=== PATIENT | male | born 1940 | race Caucasian/White ===

== ENCOUNTER 2022-08-07 21:27 | Emergency (ER) | payer MEDICARE, OTHER ==
--- NOTE | 2022-08-07 21:36 | ERPHSYRPT ---
- History of Present Illness Time Seen by Provider: 08/07/22 21:36 Source: patient Exam Limitations: no limitations Physician History: Patient presents w/ palpitations for the past hour. 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 Timing/Duration: today Activities at Onset: rest Chest Pain Radiation: no radiation Severity of Pain-Max: none Severity of Pain-Current: none Modifying Factors: Improves With: nothing Nitro Today/Relief: no nitro taken today Aspirin Treatment Today: no aspirin today Associated Symptoms: denies symptoms Prior Chest Pain/Cardiac Workup: no prior chest pain Allergies/Adverse Reactions: budesonide [From Symbicort] Allergy (Severe, Verified 08/07/22 21:46) Irregular Heart Beat ciprofloxacin [From Cipro] Allergy (Severe, Verified 08/07/22 21:46) Irregular Heart Beat ciprofloxacin HCl [From Cipro] Allergy (Severe, Verified 08/07/22 21:46) Irregular Heart Beat formoterol [From Symbicort] Allergy (Severe, Verified 08/07/22 21:46) Irregular Heart Beat sulfamethoxazole [From Bactrim] Allergy (Severe, Verified 08/07/22 21:46) Rapid Heart Beat trimethoprim [From Bactrim] Allergy (Severe, Verified 08/07/22 21:46) Rapid Heart Beat Home Medications: Amlodipine Besylate 5 mg [Norvasc 5 mg] 5 mg PO BID 03/31/13 [History] Aspirin 81 gm Chew [Baby Aspirin 81 mg Chew] 81 mg PO DAILY 03/31/13 [History] Carvedilol [Coreg 6.25 MG] 6.25 mg PO BID 03/31/13 [History] Lisinopril 20 mg [Zestril 20 MG] 20 mg PO BID 03/31/13 [History] Pravastatin Sodium 80 mg PO DAILY 03/31/13 [History] Apixaban [Eliquis] 5 mg PO BID 08/07/22 [History] Ergocalciferol (Vitamin D2) [Vitamin D2] 1 tab PO UD 08/07/22 [History] Ezetimibe 10 mg PO DAILY 08/07/22 [History] Finasteride 5 mg [Proscar 5 MG] 1 tab PO HS 08/07/22 [History] Hx Tetanus, Diphtheria Vaccination/Date Given: No Hx Influenza Vaccination/Date Given: No Hx Pneumococcal Vaccination/Date Given: No - Review of Systems Constitutional: No Symptoms Eyes: No Symptoms Ears, Nose, & Throat: No Symptoms Respiratory: No Symptoms Cardiac: Palpitations, No Chest Pain, No Edema, No Orthopnea Abdominal/Gastrointestinal: No Symptoms Genitourinary Symptoms: No Symptoms Musculoskeletal: No Symptoms Skin: No Symptoms Neurological: No Symptoms Psychological: No Symptoms Endocrine: No Symptoms Hematologic/Lymphatic: No Symptoms Immunological/Allergic: No Symptoms All Other Systems: Reviewed and Negative - Past Medical History Pertinent Past Medical History: Yes Neurological History: No Pertinent History ENT History: No Pertinent History Cardiac History: Arrhythmia, Coronary Artery Disease, High Cholesterol, Hypertension, Myocardial Infarction ([place]) Respiratory History: Pneumonia Endocrine Medical History: No Pertinent History Musculoskeletal History: No Pertinent History GI Medical History: Colitis, GERD, Hernia History: No Pertinent History Psycho-Social History: No Pertinent History Male Reproductive Disorders: No Pertinent History Other Medical History: ABDOMINAL ANEURYSM BEHIND THE STOMACHE. 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 DR ALVAREZ IS [employer] - Past Surgical History Past Surgical History: Yes Neuro Surgical History: No Pertinent History Cardiac: Cardiac Catheterization, Cardiac Stent Respiratory: No Pertinent History Gastrointestinal: Appendectomy, Hernia Repair Genitourinary: No Pertinent History Musculoskeletal: No Pertinent History Male Surgical History: No Pertinent History - Social History Smoking Status: Former smoker Exposure to second hand smoke: No Drug Use: none Patient Lives Alone: Yes - Nursing Vital Signs Nursing Vital Signs: Initial Vital Signs Temperature 98.9 F 08/07/22 21:28 Pulse Rate 60 08/07/22 21:28 Respiratory Rate 20 08/07/22 21:28 Blood Pressure 126/57 08/07/22 21:28 O2 Sat by Pulse Oximetry 98 08/07/22 21:28 Pain Scale Pain Intensity 0 - Physical Exam General Appearance: no apparent distress Eye Exam: eyes nml inspection Ears, Nose, Throat Exam: normal ENT inspection Neck Exam: normal inspection Respiratory Exam: normal breath sounds, lungs clear, airway intact, No respiratory distress Cardiovascular Exam: irregular, capillary refill <2 sec, No edema Gastrointestinal/Abdomen Exam: soft, No tenderness Extremity Exam: normal inspection, No pedal edema, No swelling, No tenderness Neurologic Exam: alert, oriented x 3, cooperative, No confusion Skin Exam: warm, dry, pale SpO2 Interpretation: normal SpO2: 98 O2 Delivery: Room Air - Course Nursing assessment & vital signs reviewed: Yes EKG Interpreted by Me: RATE (68, atrial paced, irregular), NORMAL AXIS, NORMAL INTERVALS, Other (No concerning ST changes) Ordered Tests: Active Orders 24 hr Category Date Time Status Cleaning Custodian STAT Care 08/07/22 22:20 Active EKG-ER Only STAT Care 08/07/22 22:19 Active IV Insertion STAT Care 08/07/22 22:19 Active Pulse Oximetry (ED) STAT Care 08/07/22 22:19 Active BMP Stat Lab 08/07/22 21:38 Completed CBC W DIFF Stat Lab 08/07/22 21:38 Completed MAGNESIUM Stat Lab 08/07/22 21:38 Completed NT PRO BNPII Stat Lab 08/07/22 21:38 Completed TROPONIN Q4H Lab 08/07/22 21:38 Completed TROPONIN Q4H Lab 08/08/22 02:30 Ordered TROPONIN Q4H Lab 08/08/22 06:30 Ordered Lab/Rad Data: Laboratory Result Diagrams 08/07/22 21:38 08/07/22 21:38 Laboratory Results 08/07/22 08/07/22 08/07/22 Range/Units 21:38 21:38 21:38 WBC (4.0-10.5) x10^3/uL RBC (4.1-5.6) x10^6/uL Hgb (12.5-18.0) g/dL Hct (42-50) % MCV (78-100) fL MCH (26-32) pg MCHC (32-36) g/dL RDW (11.5-14.0) % Plt Count (150-450) x10^3/uL MPV (7.5-11.0) fL Gran % (36.0-66.0) % Immature Gran % (Auto) (0.00-0.4) % Nucleat RBC Rel Count (0.00-0.1) % Eos # (Auto) (0-0.5) x10^3/uL Immature Gran # (Auto) (0.00-0.03) x10^3u/L Absolute Lymphs (auto) (1.0-4.6) x10^3/uL Absolute Monos (auto) (0.0-1.3) x10^3/uL Absolute Nucleated RBC (0.00-0.01) x10^3u/L Lymphocytes % (24.0-44.0) % Monocytes % (0.0-12.0) % Eosinophils % (0.00-5.0) % Basophils % (0.0-0.4) % Absolute Granulocytes (1.4-6.9) x10^3/uL Basophils # (0-0.4) x10^3/uL Sodium 139 (137-145) mmol/L Potassium 3.8 (3.5-5.1) mmol/L Chloride 104 (98-107) mmol/L Carbon Dioxide 26 (22-30) mmol/L Anion Gap 12.7 (5-15) MEQ/L BUN 26 H (9-20) mg/dL Creatinine 0.77 (0.66-1.25) mg/dL Estimated GFR > 60.0 ML/MIN Glucose 159 H (74-106) mg/dL Calcium 8.7 (8.4-10.2) mg/dL Magnesium 2.0 (1.6-2.3) mg/dL Troponin I < 0.012 (0.000-0.034) ng/mL NT-Pro-B Natriuret Pep 1020 (<300) pg/mL 08/07/22 Range/Units 21:38 WBC 5.1 (4.0-10.5) x10^3/uL RBC 3.60 L (4.1-5.6) x10^6/uL Hgb 11.3 L (12.5-18.0) g/dL Hct 35.4 L (42-50) % MCV 98.3 (78-100) fL MCH 31.4 (26-32) pg MCHC 31.9 L (32-36) g/dL RDW 13.0 (11.5-14.0) % Plt Count 143 L (150-450) x10^3/uL MPV 10.3 (7.5-11.0) fL Gran % 74.5 H (36.0-66.0) % Immature Gran % (Auto) 0.4 (0.00-0.4) % Nucleat RBC Rel Count 0.0 (0.00-0.1) % Eos # (Auto) 0.02 (0-0.5) x10^3/uL Immature Gran # (Auto) 0.02 (0.00-0.03) x10^3u/L Absolute Lymphs (auto) 0.44 L (1.0-4.6) x10^3/uL Absolute Monos (auto) 0.80 (0.0-1.3) x10^3/uL Absolute Nucleated RBC 0.00 (0.00-0.01) x10^3u/L Lymphocytes % 8.7 L (24.0-44.0) % Monocytes % 15.8 H (0.0-12.0) % Eosinophils % 0.4 (0.00-5.0) % Basophils % 0.2 (0.0-0.4) % Absolute Granulocytes 3.78 (1.4-6.9) x10^3/uL Basophils # 0.01 (0-0.4) x10^3/uL Sodium (137-145) mmol/L Potassium (3.5-5.1) mmol/L Chloride (98-107) mmol/L Carbon Dioxide (22-30) mmol/L Anion Gap (5-15) MEQ/L BUN (9-20) mg/dL Creatinine (0.66-1.25) mg/dL Estimated GFR ML/MIN Glucose (74-106) mg/dL Calcium (8.4-10.2) mg/dL Magnesium (1.6-2.3) mg/dL Troponin I (0.000-0.034) ng/mL NT-Pro-B Natriuret Pep (<300) pg/mL - Progress Progress: improved Air Movement: good Progress Note: 08/08/22 00:01 Hb 11.3, platelets 143, Mg 2, Troponin neg x 1, BNP 1,020 Patient continues to deny CP, SOB Stressed the importance of f/u w/ psychology assistant Blood Culture(s) Obtained: No Antibiotics given: No Counseled pt/family regarding: lab results, diagnosis, need for follow-up Medical Desision Making - Diagnostic Testing Diagnostic test were ordered, analyzed, and reviewed by me: Yes Radiological Interpretation: Interpreted by me - Risk of complications Low Risk: Low risk of morbidity from additional dx testing or treatment - Departure Departure Disposition: Home Clinical Impression: Anemia, Atrial fibrillation Condition: Stable Critical Care Time: No Referrals: EDOUARD LARRY [Primary Care Provider] - Follow up/PCP as directed LO CASTRO MD [NON-STAFF PHY W/O PRIVILEGES] - Follow up/PCP as directed Instructions: Atrial Fibrillation (DC) Additional Instructions: You were evaluated in the Emergency Department today for palpitations. Your evaluation has shown no signs of medical conditions requiring emergent intervention at this time, however we recommend that you follow up with your primary care physician or your psychology assistant as soon as possible for further testing as an outpatient. Please schedule an appointment for follow up with your primary care physician as soon as possible. Return to the Emergency Department if you experience worsening or uncontrolled chest pain, shortness of breath, light headedness, feeling faint, nausea, vomiting, or any other concerning symptoms. Thank you for choosing us for your care.
[2022-08-07 22:24] LABS: Absolute Neutrophil Ct (ANC) 3.78 x10^3/uL (1.4-6.9); BASOPHIL % 0.2 % (0.0-0.4); Basophil (Absolute #) 0.01 x10^3/uL (0-0.4); Eosinophil % 0.4 % (0.00-5.0); Eosinophil (Absolute #) 0.02 x10^3/uL (0-0.5); Hematocrit 35.4 % (42-50); Hemoglobin 11.3 g/dL (12.5-18.0); IMMATURE GRAN # 0.02 x10^3u/L (0.00-0.03); IMMATURE GRAN % 0.4 % (0.00-0.4); Lymphocyte (Absolute #) 0.44 x10^3/uL (1.0-4.6); Lymphocytes % 8.7 % (24.0-44.0); Mean Cell Volume 98.3 fL (78-100); Mean Corpuscular Hemoglobin 31.4 pg (26-32); Mean Corpuscular Hgb Concent. 31.9 g/dL (32-36); Mean Platelet Volume 10.3 fL (7.5-11.0); Monocytes % 15.8 % (0.0-12.0); Neutrophil % 74.5 % (36.0-66.0); Platelet Count 143 x10^3/uL (150-450); White Blood Count 5.1 x10^3/uL (4.0-10.5)
[2022-08-07 22:34] LABS: ANION GAP 12.7 MEQ/L (5-15); BLOOD UREA NITROGEN 26 mg/dL (9-20); CHLORIDE 104 mmol/L (98-107); Calcium 8.7 mg/dL (8.4-10.2); Carbon Dioxide 26 mmol/L (22-30); Creatinine 1 0.77 mg/dL (0.66-1.25); EST GLOMERULAR FILTRATION RATE > 60.0 ML/MIN; Glucose 159 mg/dL (74-106); Potassium 3.8 mmol/L (3.5-5.1); SODIUM 139 mmol/L (137-145)
[2022-08-08 00:06] VITALS: BP 118/50; PULSE 67; O2SAT 97
== END 2022-08-08 00:06 | disposition home or self-care (01) ==
LOC: ED 21:27
DX: D64.9 Anemia, unspecified (principal); I48.91 Unspecified atrial fibrillation; E78.5 Hyperlipidemia, unspecified; I10 Essential (primary) hypertension; Z79.01 Long term (current) use of anticoagulants; Z79.899 Other long term (current) drug therapy
CPT/HCPCS: 36000; 36415; 80048; 83735; 83880; 84484; 85025; 93005; 93041; 94760; 99284